=== PATIENT | female | born 1990 ===

== ENCOUNTER → 2021-12-21 | Outpatient (CLI) | payer SELFPAY ==
--- NOTE | 2021-12-21 16:27 | Diagnostic Imaging Report ---
INDICATION: Back pain. COMPARISON: None FINDINGS: Frontal and lateral views of the lumbar spine were obtained. Alignment and vertebral heights are maintained. There is no fracture or destructive process. Limited views of the abdomen demonstrate nonobstructive bowel gas pattern. IMPRESSION: 1. No acute fracture or dislocation of the lumbar spine. Dictated by: Dictated on workstation # [id number]
== END ==
LOC: RAD FS 14:55
PROVIDERS: ATTEND Nurse Practitioner Family
DX: M54.41 Lumbago with sciatica, right side (principal)
CPT/HCPCS: 72100

== ENCOUNTER 2022-02-27 18:05 | Emergency (ER) | payer SELFPAY ==
[~2022-02-27] VITALS: Ht 163 cm; Wt 60.0 kg
[2022-02-27 18:17] VITALS: BP 141/97
--- NOTE | 2022-02-27 18:31 | ED General ---
General Chief Complaint: Lower Extremity Stated Complaint: LEGS SORE Nursing Triage Note: Patient has ambulated to ER with cc of her legs aching. She reports that today she had her first injection of ozempic - being used for weight loss. She had left the clinic and was walking around [facility] when she started to have some aching in her legs. She reports that she has a dry mouth. She is conerned that this is a side effect of the ozempic. She called the clinic and she was advised to go the ER. She reports the pain is minimal and she has not taken anything for the pain. Source of Information: Patient History of Present Illness Date Seen by Provider: February 27, 2022 Time Seen by Provider: 18:43 Initial Comments 31-year-old female had presented with aching pain in her legs and dry mouth. She had her first dose of Ozempic today for weight loss. She called the clinic and they advised her to be seen in the emergency department. However she became more anxious with her child screaming and upset and decided that she wanted to leave the rather than wait to be seen. She signed AMA paperwork with the nurse and left prior to being seen by the physician Allergies and Home Medications Allergies Coded Allergies: No Known Drug Allergies (Unverified , 02/27/22) Patient Home Medication List Home Medication List Reviewed: Yes Review of Systems Review of Systems Constitutional: see HPI Unable to obtain full review of systems as patient left prior to being seen by a physician Past Lauzcic-Ivicjc-Fjiujz Hx Patient Social History Tobacco Use?: Yes Tobacco type used: Cigarettes Smoking Status: Current Someday Smoker Use of E-Cig and/or Vaping dev: No Substance use?: No Alcohol Use?: No Physical Exam Vital Signs Vital Signs - First Documented 02/27/22 18:17 Temp 36.1 Pulse 93 Resp 18 B/P (MAP) 141/97 (112) O2 Delivery Room Air Capillary Refill : Height, Weight, BMI Height: '" Weight: lbs. oz. kg; 22.00 BMI Method: General Appearance: Anxious Comments Patient left prior to exam by physician Progress/Results/Core Measures Suspected Sepsis SIRS Temperature: Pulse: 93 Respiratory Rate: 18 Blood Pressure 141 /97 Mean: 112 Results/Orders Vital Signs/I&O 02/27/22 18:17 Temp 36.1 Pulse 93 Resp 18 B/P (MAP) 141/97 (112) O2 Delivery Room Air Capillary Refill : Blood Pressure Mean: 112 Progress Note : Progress Note I discussed the case with poison control through [facility] and they advised they were unaware of any toxic effect of Ozempic from a single dose. Recommended symptomatic care and follow-up with primary. Prior to being able to speak with the patient about what I learned from poison control she had become more anxious and told the nurses that she was going to leave. They had her sign out paperwork AGAINST MEDICAL ADVICE as she was leaving prior to being seen by a physician. She stated that she would follow-up with the clinic for continued symptoms and concerns but felt like some of this was anxiety related. Departure Impression Primary Impression: Left against medical advice Additional Impression: Medication side effect Disposition: 07 AGAINST MEDICAL ADVICE Condition: Against Medical Advice Departure-Patient Inst. Referrals: ELMA ORELLANA APRN (PCP) Primary Care Physician [facility] [place] (Family) Primary Care Physician HAZEL BENNETT MD February 27, 2022 18:31
== END 2022-02-27 18:43 | disposition other institution (70) ==
LOC: EDUNIT# 18:05 → ER FS 18:07
DX: M79.604 Pain in right leg (principal); M79.605 Pain in left leg; T50.995A Adverse effect of other drugs, medicaments and biological substances, initial encounter; F17.210 Nicotine dependence, cigarettes, uncomplicated
CPT/HCPCS: 99281

== ENCOUNTER → 2022-04-10 | Outpatient (CLI) | payer BC ==
--- NOTE | 2022-04-10 12:58 | Diagnostic Imaging Report ---
INDICATION: SCIATICA OF RIGHT SIDE, DIFFICULTY WALKING, PAIN COMPARISON: None. FINDINGS: Multiple radiographic views of the bilateral SI joints were obtained and show no fractures, dislocations, or other acute bony abnormalities. Joint spaces are well maintained throughout. The soft tissues appear unremarkable. No radiopaque foreign bodies are identified. IMPRESSION: Unremarkable radiographic exam of the bilateral SI joints. Dictated by: Dictated on workstation # [id number]
== END ==
LOC: RAD FS 12:12
PROVIDERS: ATTEND Nurse Practitioner Family
DX: M54.31 Sciatica, right side (principal); R26.2 Difficulty in walking, not elsewhere classified
CPT/HCPCS: 72202

== ENCOUNTER 2022-04-17 07:59 | Emergency (ER) | payer BC ==
[~2022-04-17] VITALS: Ht 157.5 cm; Wt 90.7 kg
[2022-04-17] MEDS ORDERED: ORPHENADRINE 60 MG/2 ML (NORFLEX) AMP (ED ONLY) IM STA (08:14)
[2022-04-17] MEDS ORDERED: KETOROLAC 30 MG/ML VIAL IM STA (08:14)
--- NOTE | 2022-04-17 08:14 | ED Lower Extremity ---
General Stated Complaint: BACK/LT LEG PAIN History of Present Illness Date Seen by Provider: Apr 17, 2022 Time Seen by Provider: 08:09 Initial Comments 31-year-old female presents with right low back pain that radiates down her right leg. Patient reports that symptoms started approximately 3 weeks ago. Patient was seen by her primary care provider and received a steroid shot. She reports that the pain continues to get worse. Patient has not followed up with her primary care provider. She reports that they did a negative pelvic x-ray at that time. She denies any loss of bowel or bladder symptoms. She does not report any injury when symptoms started. Patient's pain is in the lateral aspect of the lumbar sacral region and not midline with radiation down the leg. Allergies and Home Medications Allergies Coded Allergies: No Known Drug Allergies (Unverified , 02/27/22) Patient Home Medication List Home Medication List Reviewed: Yes Baclofen (Baclofen) 10 Mg Tablet, 10 MG PO TID Prescribed by: RIKKI GONZALEZ on 04/17/22821 Diclofenac Sodium (Diclofenac Sodium) 3 % Gel..gram., 2 GM TP QID Prescribed by: RIKKI GONZALEZ on 04/17/22821 Naproxen (Naprosyn) 500 Mg Tablet, 500 MG PO BID Prescribed by: RIKKI GONZALEZ on 04/17/22 08 Review of Systems Constitutional: No chills, No fever Respiratory: No cough, No short of breath Cardiovascular: No chest pain, No palpitations Gastrointestinal: No abdominal pain, No nausea, No vomiting Musculoskeletal: see HPI, back pain Skin: no symptoms reported Psychiatric/Neurological: See HPI Physical Exam Vital Signs Vital Signs - First Documented 04/17/22 04/17/22 08:00 08:54 Temp 37.0 Pulse 86 Resp 19 B/P (MAP) 138/96 (110) Pulse Ox 100 O2 Delivery Room Air Capillary Refill : Height, Weight, BMI Height: '" Weight: lbs. oz. kg; 22.00 BMI Method: General Appearance: other (Tearful) HEENT: PERRL/EOMI, normal ENT inspection Neck: full range of motion, supple Cardiovascular: normal peripheral pulses, regular rate, rhythm Respiratory: lungs clear, normal breath sounds, no respiratory distress Gastrointestinal: non tender, soft Hips: right hip soft tissue tenderness Legs: left leg non-tender, left leg normal inspection Knees: bilateral knee non-tender Ankles: bilateral ankle non-tender Neurologic/Tendon: normal sensation Neurologic/Psychiatric: alert, normal mood/affect, oriented x 3 Skin: normal color, warm/dry Progress/Results/Core Measures Results/Orders My Orders Orders - KARLI GONZALEZR Raven DO Ketorolac Injection (Toradol Injection) (04/17/22 08:14) Orphenadrine Inj (Ed Only) (Norflex Inje (04/17/22 08:14) Vital Signs/I&O 04/17/22 04/17/22 08:00 08:54 Temp 37.0 Pulse 86 79 Resp 19 17 B/P (MAP) 138/96 (110) 131/72 Pulse Ox 100 O2 Delivery Room Air Room Air Progress Progress Note : Progress Note Patient felt significant better following treatment. Recommend she follow-up with her primary care provider for further outpatient management, consideration of both MRI and physical therapy. Patient was stable and discharged Departure Impression Primary Impression: Lumbar radiculopathy Disposition: 01 HOME, SELF-CARE Condition: Stable Departure-Patient Inst. Referrals: ELMA ORELLANA APRN (PCP) Primary Care Physician [facility] (Family) Primary Care Physician Patient Instructions: Radiculopathy (DC), Low Back Pain (DC) Add. Discharge Instructions: 4% topical lidocaine with menthol to right lower back, cream gel or patch use as directed on package Please follow-up with your primary care provider to arrange for possible further imaging such as MRI and consideration of physical therapy Scripts Naproxen (Naprosyn) 500 Mg Tablet 500 MG PO BID, #30 TAB 0 Refills Prov: RIKKI GONZALEZ DO 04/17/22 Baclofen (Baclofen) 10 Mg Tablet 10 MG PO TID, #15 TAB Prov: CARLOSRIKKI L DO 04/17/22 Diclofenac Sodium (Diclofenac Sodium) 3 % Gel..gram. 2 GM TP QID, #1 EA Prov: RIKKI GONZALEZ DO 04/17/22 RIKKI GONZALEZ DO Apr 17, 2022 08:14
[2022-04-17] MEDS ORDERED: BACL10TA PO (08:22)
[2022-04-17] MEDS ORDERED: DICL100G32 TP (08:22)
[2022-04-17] MEDS ORDERED: NAPR-1071 PO (08:23)
[2022-04-17 08:54] VITALS: BP 131/72
== END 2022-04-17 08:53 | disposition home or self-care (01) ==
LOC: EDUNIT# 07:59 → ER FS 08:00
DX: M54.16 Radiculopathy, lumbar region (principal)
CPT/HCPCS: 99284